=== PATIENT | female | born 1960 | race Two or more races ===

== ENCOUNTER 2016-12-13 18:11 | Emergency (ER) | payer SELFPAY ==
--- NOTE | 2016-12-13 18:40 | EKG REPORT ---
SEVERITY:- BORDERLINE ECG - SINUS RHYTHM PROBABLE LEFT ATRIAL ABNORMALITY : Confirmed by: Ashleigh Mcconnell MD 13-Dec-2016 18:39:57
--- NOTE | 2016-12-13 18:44 | ER Document Report ---
ED Medical Screen (RME) - General Chief Complaint: Chest Pain Stated Complaint: CHEST PAIN, BACK PAIN Time seen by provider: 18:41 Mode of Arrival: Ambulatory Information source: Patient Notes: 56-year-old female presents to ED for chest and back pain with coughs and colds since October. States she has a history of high blood pressure and cholesterol. States she has a history of angina and fluids around her heart 1994. November 21 she saw her primary doctor was put on Keflex and prednisone and was told her she did not get better she was going to need a chest x-ray. I have greeted and performed a rapid initial assessment of this patient. A comprehensive ED assessment and evaluation of the patient, analysis of test results and completion of medical decision making process will be conducted by an additional ED providers. TRAVEL OUTSIDE OF THE [place] IN LAST 30 DAYS: No - Related Data Allergies/Adverse Reactions: acetaminophen [From Fioricet] Allergy (Verified 03/27/16 12:01) butalbital [From Fioricet] Allergy (Verified 03/27/16 12:01) caffeine [From Fioricet] Allergy (Verified 03/27/16 12:01) Past Medical History Renal/ Medical History: Reports: Hx Kidney Stones Psychiatric Medical History: Reports: Hx Depression Past Surgical History: Reports: Hx Breast Surgery - x3, Hx Cardiac Catheterization, Hx Cholecystectomy, Hx Gynecologic Surgery - x3, Hx Kidney ( Renal Surgery) - remove stone
[2016-12-13] MEDS ORDERED: ASPIRIN 81 MG TABLET, CHEWABLE PO ONE (18:45)
[2016-12-13 19:14] LABS: ABSOLUTE EOSINOPHILS # (AUTO) 0.2 10^3/uL (0.0-0.6); ABSOLUTE LYMPHOCYTES (AUTO) 2.6 10^3/uL (0.5-4.7); ABSOLUTE MONOCYTES (AUTO) 0.6 10^3/uL (0.1-1.4); ABSOLUTE NEUT (AUTO) 4.5 10^3/uL (1.7-8.2); BASOPHILS % (AUTO) 0.6 % (0-2); EOSINOPHILS % (AUTO) 2.7 % (0-6); HEMATOCRIT 39.2 % (36.0-47.0); HEMOGLOBIN 12.9 g/dL (12.0-15.5); HGB HCT DIFFERENCE -0.5; LYMPHOCYTES % (AUTO) 32.7 % (13-45); MEAN CORPUSCULAR HEMOGLOBIN 27.9 pg (27.0-33.4); MEAN CORPUSCULAR HGB CONC 32.8 g/dL (32.0-36.0); MEAN CORPUSCULAR VOLUME 85 fl (80-97); MONOCYTES % (AUTO) 7.3 % (3-13); RED BLOOD COUNT 4.61 10^6/uL (3.72-5.28); RED CELL DISTRIBUTION WIDTH 13.9 % (11.5-14.0); SEGMENTED NEUTROPHILS % (AUTO) 56.7 % (42-78)
[2016-12-13 19:26] LABS: ALANINE AMINOTRANSFERASE 41 U/L (9-52); ALBUMIN 4.8 g/dL (3.5-5.0); ALKALINE PHOSPHATASE 72 U/L (38-126); ANION GAP 12 (5-19); ASPARTATE AMINO TRANSFERASE 21 U/L (14-36); BILIRUBIN,TOTAL 0.4 mg/dL (0.2-1.3); BLOOD UREA NITROGEN 25 mg/dL (7-20); CARBON DIOXIDE 29 mmol/L (22-30); CHLORIDE 102 mmol/L (98-107); CREATINE KINASE 46 U/L (30-135); CREATININE RESULT 0.71 mg/dL (0.52-1.25); GLUCOSE 89 mg/dL (75-110); LIPASE 113.6 U/L (23-300); POTASSIUM 4.2 mmol/L (3.6-5.0); SODIUM 143.4 mmol/L (137-145); TOTAL PROTEIN 7.7 g/dL (6.3-8.2)
[2016-12-13 19:38] LABS: CREATINE KINASE MB 0.23 ng/mL (<4.55)
[2016-12-13 19:39] LABS: TROPONIN I < 0.012 ng/mL
[2016-12-13] MEDS ORDERED: CYCLOBENZAPRINE HCL 10 MG TABLET PO ONE (22:41)
--- NOTE | 2016-12-13 22:42 | ER Document Report ---
ED General - General Mode of Arrival: Ambulatory TRAVEL OUTSIDE OF THE [place] IN LAST 30 DAYS: No - HPI Patient complains to provider of: Substernal Chest pain and upper back pain Associated symptoms: Other - see above Exacerbated by: Movement, Deep breathing <LAITH HOLLAND - Last Filed: 12/13/16 23:31> <MARIKABREN BRIEN - Last Filed: 12/14/16 03:26> - General Chief Complaint: Chest Pain Stated Complaint: CHEST PAIN, BACK PAIN Notes: 56 -year-old female with history of angina presents to the ED complaining of substernal chest pain and upper back pain that began earlier today. Patient states that she has been sick since 10/23/2016 with a cough, congestion, and fever. Patient followed up with an urgent care and was prescribed a Z-Riley. On 11/21/2016 patient developed another fever and still had the cough and congestion. Patient was prescribed Keflex and prednisone. Patient states that the prednisone helped with the cough and congestion, but she states that she is currently having chest pain with deep breathing and movement. Patient explains that she was having armpit pain back in October when she was experiencing a cough, congestion, and fever. Patient has a history of hyperlipidemia and hypertension. Patient denies use of estrogen supplements. (LAITH HOLLAND) - Related Data Allergies/Adverse Reactions: acetaminophen [From Fioricet] Allergy (Verified 12/13/16 18:44) butalbital [From Fioricet] Allergy (Verified 12/13/16 18:44) caffeine [From Fioricet] Allergy (Verified 12/13/16 18:44) Past Medical History - General Information source: Patient - Social History Smoking Status: Current Every Day Smoker Chew tobacco use (# tins/day): No Frequency of alcohol use: None Drug Abuse: None Family History: Reviewed & Not Pertinent Patient has suicidal ideation: No Patient has homicidal ideation: No - Past Medical History Cardiac Medical History: Reports: Other - angina Renal/ Medical History: Reports: Hx Kidney Stones Psychiatric Medical History: Reports: Hx Depression Past Surgical History: Reports: Hx Breast Surgery - x3, Hx Cardiac Catheterization, Hx Cholecystectomy, Hx Gynecologic Surgery - x3, Hx Kidney ( Renal Surgery) - remove stone <LAITH HOLLAND - Last Filed: 12/13/16 23:31> Review of Systems - Review of Systems Constitutional: See HPI, Recent illness - cough, congestion, and fever from early october to early november. EENT: No symptoms reported Cardiovascular: See HPI, Chest pain - substernal Respiratory: No symptoms reported Gastrointestinal: No symptoms reported Genitourinary: No symptoms reported Female Genitourinary: No symptoms reported Musculoskeletal: See HPI, Back pain - upper back Skin: No symptoms reported Hematologic/Lymphatic: No symptoms reported Neurological/Psychological: No symptoms reported <LAITH HOLLAND - Last Filed: 12/13/16 23:31> Physical Exam - Vital signs Interpretation: Normal - General General appearance: Alert In distress: None - HEENT Head: Normocephalic, Atraumatic Eyes: Normal Extraocular movements intact: Yes Pupils: PERRL - Respiratory Respiratory status: No respiratory distress Chest status: Tender - see below Breath sounds: Normal Chest palpation: Tender - anterior chest wall tenderness to palpation. No: Normal - Cardiovascular Rhythm: Regular Heart sounds: Normal auscultation - Abdominal Inspection: Normal - Back Back: Normal - Extremities General upper extremity: Normal inspection, Normal ROM General lower extremity: Normal inspection, Normal ROM - Neurological Neuro grossly intact: Yes Cognition: Normal Orientation: AAOx4 Monster Coma Scale Eye Opening: Spontaneous [place] Coma Scale Verbal: Oriented [place] Coma Scale Motor: Obeys Commands Monster Coma Scale Total: 15 Speech: Normal - Psychological Associated symptoms: Normal affect, Normal mood - Skin Skin Temperature: Warm Skin Moisture: Dry Skin Color: Normal <LAITH HOLLAND - Last Filed: 12/13/16 23:31> <BREN HAIRSTON - Last Filed: 12/14/16 03:26> - Vital signs Vitals: Temp Pulse Resp BP Pulse Ox 97.8 F 81 20 134/96 H 96 12/13/16 18:44 12/13/16 18:44 12/13/16 18:44 12/13/16 18:44 12/13/16 18:44 (LAITH HOLLAND) (BREN HAIRSTON) Course - Laboratory Result Diagrams: 12/13/16 18:50 12/13/16 18:50 <LAITH HOLLAND - Last Filed: 12/13/16 23:31> - Laboratory Result Diagrams: 12/13/16 18:50 12/13/16 18:50 <BREN HAIRSTON - Last Filed: 12/14/16 03:26> - Re-evaluation Re-evalutation: 12/14/16 Patient with reproducible chest wall pain. Troponin negative. EKG within normal limits. CTA with no acute findings of pulmonary embolus or infection. Patient has been given a copy of her CT results which show pulmonary nodules. She is to follow-up with her doctor. Understands and agrees with plan. She'll be discharged home with Soma for pain. Return if any worsening or concerning symptoms. Grateful for care. (BREN HAIRSTON) - Vital Signs Vital signs: Temp Pulse Resp BP Pulse Ox 97.5 F 63 16 141/92 H 96 12/14/16 00:43 12/14/16 00:43 12/14/16 00:43 12/14/16 00:43 12/14/16 00:43 (LAITH HOLLAND) (BREN HAIRSTON) - Laboratory Laboratory results interpreted by me: 12/13/16 18:50 BUN 25 H (LAITH HOLLAND) (BREN HAIRSTON) Discharge <LAITH HOLLAND - Last Filed: 12/13/16 23:31> <BREN HAIRSTON - Last Filed: 12/14/16 03:26> - Discharge Clinical Impression: Atypical chest pain, Pulmonary nodule Condition: Stable Disposition: HOME, SELF-CARE Instructions: Chest Pain of Unclear Cause ([facility]) Prescriptions: Carisoprodol [Soma] 350 mg PO DAILYP PRN #14 tablet PRN Reason: Forms: Smoking Cessation Education Referrals: LUPE MICHELLE PA-C [Primary Care Provider] - Follow up as needed Scribe Attestation: 12/14/16 03:26 I personally performed the services described in the documentation, reviewed and edited the documentation which was dictated to the scribe in my presence, and it accurately records my words and actions. (BREN HAIRSTON) Scribe Documentation - Scribe Written by Akiraibe:: Jessica Mello, 12/13/2016 23:51 acting as scribe for :: Marika <LAITH HOLLAND - Last Filed: 12/13/16 23:31>
[2016-12-14 00:45] VITALS: BP 141/92
== END 2016-12-14 00:49 | disposition home or self-care (01) ==
LOC: ER 18:11
DX: O28.8 Other abnormal findings on antenatal screening of mother (principal); R07.9 Chest pain, unspecified; M54.9 Dorsalgia, unspecified; F17.210 Nicotine dependence, cigarettes, uncomplicated
CPT/HCPCS: 36415; 71020; 71275; 80053; 82550; 82553; 83690; 84484; 85025; 93005; 93010; 99285

== ENCOUNTER → 2017-03-15 | Outpatient (CLI) | payer SELFPAY | LOC: OD 14:50 | PROVIDERS: ATTEND Nurse Practitioner Acute Care | DX: S59.902A Unspecified injury of left elbow, initial encounter (principal); X58.XXXA Exposure to other specified factors, initial encounter ==

== ENCOUNTER 2019-02-24 13:13 | Inpatient (IN) | payer SELFPAY ==
--- NOTE | 2019-02-24 14:24 | ER Document Report ---
ED Medical Screen (RME) - General Chief Complaint: Abdominal Cramping Stated Complaint: urinary issue Time Seen by Provider: 02/24/19 14:16 Primary Care Provider: ZAHRA SPENCER NP [Primary Care Provider] - Follow up as needed TRAVEL OUTSIDE OF THE [place] IN LAST 30 DAYS: No - HPI Notes: 02/24/19 14:22 Patient is a 58-year-old female who presents emergency department complaining of lower abdominal pain bilaterally over the past couple days that has increased in intensity and is described as sharp stabbing pains with associated rectal pain prior to having bowel movements. She did have a normal bowel movement today without any hematochezia or melena. Patient was seen at urgent care a couple days ago and had an unremarkable urinalysis, but was subsequently placed on Ba ctrim as precautionary. She has not had any improvement, but noticed worsening symptoms. Denies ROACH, fever, neck pain, URI, CP, SOB, Abd pain, vaginal discharge/odor/bleeding, or rash. I have treated and performed a rapid initial assessment of this patient. A comprehensive ED assessment and evaluation of the patient, analysis of test results and completion of medical decision making process will be conducted by additional ED providers. PHYSICAL EXAMINATION: GENERAL: Well-appearing, well-nourished and in no acute distress. A&Ox4. Answers questions appropriately. LUNGS: Breath sounds clear to auscultation bilaterally and equal. No wheezes rales or rhonchi. HEART: Regular rate and rhythm without murmurs, rubs, gallops. ABDOMEN: Soft, nondistended abdomen. No guarding, no rebound. Normal bowel sounds present. No CVA tenderness bilaterally. + lower abd tenderness (cannot elicit thorough abd exam w/o table, however). Extremities: No cyanosis, clubbing, or edema b/l. NEUROLOGICAL: Normal speech, normal gait. PSYCH: Normal mood, normal affect. - Related Data Allergies/Adverse Reactions: aspirin [From Fiorinal] Allergy (Verified 02/24/19 13:15) butalbital [From Fiorinal] Allergy (Verified 02/24/19 13:15) caffeine [From Fiorinal] Allergy (Verified 02/24/19 13:15) Past Medical History Renal/ Medical History: Reports: Hx Kidney Stones. Denies: Hx Peritoneal Dialysis Psychiatric Medical History: Reports: Hx Depression Past Surgical History: Reports: Hx Breast Surgery - x3, Hx Cardiac Catheterization, Hx Cholecystectomy, Hx Gynecologic Surgery - x3, Hx Kidney (Renal Surgery) - remove stone Physical Exam - Vital signs Vitals: Temp Pulse Resp BP Pulse Ox 97.6 F 87 16 150/88 H 97 02/24/19 13:24 02/24/19 13:24 02/24/19 13:24 02/24/19 13:24 02/24/19 13:24 Course - Vital Signs Vital signs: Temp Pulse Resp BP Pulse Ox 97.6 F 87 16 150/88 H 97 02/24/19 13:24 02/24/19 13:24 02/24/19 13:24 02/24/19 13:24 02/24/19 13:24 Doctor's Discharge - Discharge Referrals: ZAHRA SPENCER NP [Primary Care Provider] - Follow up as needed
[2019-02-24 15:06] LABS: ABSOLUTE EOSINOPHILS # (AUTO) 0.1 10^3/uL (0.0-0.6); ABSOLUTE LYMPHOCYTES (AUTO) 1.8 10^3/uL (0.5-4.7); ABSOLUTE MONOCYTES (AUTO) 0.4 10^3/uL (0.1-1.4); ABSOLUTE NEUT (AUTO) 5.2 10^3/uL (1.7-8.2); BASOPHILS % (AUTO) 0.5 % (0-2); EOSINOPHILS % (AUTO) 0.9 % (0-6); HEMATOCRIT 40.5 % (36.0-47.0); HEMOGLOBIN 13.7 g/dL (12.0-15.5); LYMPHOCYTES % (AUTO) 24.2 % (13-45); MEAN CORPUSCULAR HEMOGLOBIN 27.9 pg (27.0-33.4); MEAN CORPUSCULAR HGB CONC 33.9 g/dL (32.0-36.0); MEAN CORPUSCULAR VOLUME 83 fl (80-97); MONOCYTES % (AUTO) 4.7 % (3-13); PLATELET COUNT 293 10^3/uL (150-450); RED CELL DISTRIBUTION WIDTH 14.4 % (11.5-14.0); SEGMENTED NEUTROPHILS % (AUTO) 69.7 % (42-78); TOTAL CELLS COUNTED % (AUTO) 100 %; WHITE BLOOD COUNT 7.5 10^3/uL (4.0-10.5)
[2019-02-24 15:20] LABS: ALANINE AMINOTRANSFERASE 25 U/L (9-52); ALBUMIN 4.8 g/dL (3.5-5.0); ALKALINE PHOSPHATASE 104 U/L (38-126); ANION GAP 14 (5-19); ASPARTATE AMINO TRANSFERASE 25 U/L (14-36); BILIRUBIN,DIRECT 0.2 mg/dL (0.0-0.4); BILIRUBIN,TOTAL 0.5 mg/dL (0.2-1.3); BLOOD UREA NITROGEN 8 mg/dL (7-20); CALCIUM 10.7 mg/dL (8.4-10.2); CARBON DIOXIDE 26 mmol/L (22-30); CHLORIDE 101 mmol/L (98-107); GLUCOSE 126 mg/dL (75-110); LIPASE 70.6 U/L (23-300); SODIUM 140.9 mmol/L (137-145); TOTAL PROTEIN 8.7 g/dL (6.3-8.2)
[2019-02-24 15:30] LABS: APPEARANCE,URINE CLEAR; BILIRUBIN,URINE NEGATIVE (NEGATIVE); GLUCOSE, URINE NEGATIVE (NEGATIVE); KETONES,URINE NEGATIVE (NEGATIVE); LEUKOCYTE ESTERASE,URINE NEGATIVE (NEGATIVE); NITRITE,URINE POSITIVE (NEGATIVE); PROTEIN,URINE NEGATIVE (NEGATIVE); URINE SPECIFIC GRAVITY 1.003; UROBILINOGEN,URINE NEGATIVE mg/dL (<2.0)
[2019-02-24 15:31] LABS: COLOR,URINE YELLOW
[2019-02-24 17:44] LABS: BACTERIA (WET MOUNT) 4+ BACTERIA SEEN; EPITHELIALS (WET MOUNT) 3+ EPITHELIALS SEEN; RBCS (WET MOUNT) FEW RBCS SEEN; T.VAGINALIS (WET MOUNT) NO TRICHOMONAS SEEN; WBCS (WET MOUNT) 2+ WBCS SEEN; YEAST (WET MOUNT) NO YEAST SEEN
[2019-02-24 19:11] LABS: CHLAM PCR NOT DETECTED (NOT DETECT); GON PCR NOT DETECTED (NOT DETECT)
--- NOTE | 2019-02-24 20:28 | RADIOLOGY REPORT (SQ) ---
EXAM DESCRIPTION: RadLex: CT ABDOMEN PELVIS WITH IV CONTRAST CLINICAL HISTORY: 58 years Female; RLQ and epigastric pain TECHNIQUE: CT of the abdomen and pelvis using intravenous 90 mL Omnipaque [address] scans at this facility use dose modulation, iterative reconstruction, and/or weight based dosing when appropriate to reduce radiation dose to as low as reasonably achievable. COMPARISON: None. FINDINGS: Abdomen: Liver:No focal lesions. No intrahepatic ductal distention. Gallbladder: Surgically absent Pancreas:Within normal limits Spleen:Within normal limits Right kidney:No hydronephrosis. No focal lesion. Left kidney:No hydronephrosis. No focal lesion. Adrenal glands:Within normal limits Vascular structures:Within normal limits Pelvis: Small bowel: Nondistended. Contrast is seen throughout. Appendix:Within normal limits Colon: Diverticulosis, mostly along the sigmoid colon. There is a segment of sigmoid colon approximately 8 cm long with wall thickening and adjacent edema, associated with multiple diverticula. Along the superior margin of the segment there is a small 1.1 cm fluid density with punctate focus of air which could be a small localized perforation. There is no drainable abscess. No free intraperitoneal fluid or air. No pelvic adenopathy. Uterus is unremarkable. No adnexal masses. There are chronic degenerative changes of the lower lumbar spine. L5-S1: Bilateral L5 pars defects with associated grade 2 anterior subluxation. Bilateral foraminal stenosis. No acute bone findings. IMPRESSION: 1. Acute sigmoid diverticulitis. 2. No bowel obstruction or free air. 3. Possible 1.1 cm localized perforation along the superior margin of the inflamed segment of sigmoid colon. No drainable abscess. 4. Previous cholecystectomy.
[2019-02-24] MEDS ORDERED: NORMAL SALINE 1000 ML 1,000 ML IV ONE (20:50)
[2019-02-24] MEDS ORDERED: METRONIDAZOLE 500 MG/NS RTU 500 MG/100 ML RTUPB IV ONE (21:00)
--- NOTE | 2019-02-24 21:09 | ER Document Report ---
Entered by ESPERANZA CAROLINA SCRIBE 02/24/191 Acting as scribe for:JEM HARTMAN DO ED GI/ - General Chief Complaint: Abdominal Cramping Stated Complaint: urinary issue Time Seen by Provider: 02/24/19 14:16 Information source: Patient Notes: 58 year old female that presents to the emergency department today with complaints of abdominal, vaginal, and rectal "pressure". Patient states she had similar symptoms a few days ago and went to an urgent care who put her on antibiotics for a possible urinary tract infection although the patient had no urinary symptoms and had a clean urine specimen. Patient states since then she has developed fevers and the "pressure" has moved upwards. Patient denies dysuria, urinary frequency, or back pain. TRAVEL OUTSIDE OF THE [place] IN LAST 30 DAYS: No - Related Data Allergies/Adverse Reactions: aspirin [From Fiorinal] Allergy (Verified 02/24/19 13:15) butalbital [From Fiorinal] Allergy (Verified 02/24/19 13:15) caffeine [From Fiorinal] Allergy (Verified 02/24/19 13:15) Past Medical History - General Information source: Patient - Social History Smoking Status: Never Smoker Cigarette use (# per day): No Frequency of alcohol use: None Drug Abuse: None Lives with: Family Family History: Reviewed & Not Pertinent Patient has suicidal ideation: No Patient has homicidal ideation: No Renal/ Medical History: Reports: Hx Kidney Stones Psychiatric Medical History: Reports: Hx Depression Past Surgical History: Reports: Hx Breast Surgery - x3, Hx Cardiac Catheterization, Hx Cholecystectomy, Hx Gynecologic Surgery - x3, Hx Kidney (Renal Surgery) - remove stone Review of Systems - Review of Systems Constitutional: See HPI, Fever EENT: No symptoms reported Cardiovascular: No symptoms reported Respiratory: No symptoms reported Gastrointestinal: See HPI, Diarrhea, Nausea, Other - abdominal pressure, rectal pressure. denies: Vomiting Genitourinary: See HPI, Other - vaginal pressure Female Genitourinary: No symptoms reported Musculoskeletal: No symptoms reported Skin: No symptoms reported Hematologic/Lymphatic: No symptoms reported Neurological/Psychological: No symptoms reported -: Yes All other systems reviewed and negative Physical Exam - Vital signs Vitals: Temp Pulse Resp BP Pulse Ox 97.6 F 87 16 150/88 H 97 02/24/19 13:24 02/24/19 13:24 02/24/19 13:24 02/24/19 13:24 02/24/19 13:24 - Notes Notes: PHYSICAL EXAM GENERAL: Alert, interacts well. No acute distress. HEAD: Normocephalic, atraumatic. EYES: Pupils equal, round, and reactive to light. Extraocular movements intact. ENT: Oral mucosa moist, tongue midline. NECK: Full range of motion. Supple. Trachea midline. LUNGS: Clear to auscultation bilaterally, no wheezes, rales, or rhonchi. No respiratory distress. HEART: Regular rate and rhythm. No murmurs, gallops, or rubs. ABDOMEN: Soft, tenderness with palpation in the RLQ, periumbilical area, and epigastric area. Non-distended. Bowel sounds present in all 4 quadrants. No guarding, rigidity, or rebound. EXTREMITIES: Moves all 4 extremities spontaneously. No edema, radial and dorsalis pedis pulses 2/4 bilaterally. No cyanosis. NEUROLOGICAL: Alert and oriented x3. Normal speech. PSYCH: Normal affect, normal mood. SKIN: Warm, dry, normal turgor. No rashes or lesions noted. Course - Re-evaluation Re-evalutation: 02/24/19 21:07 CBC unremarkable, CMP unremarkable, urinalysis shows positive nitrites but no other signs of infection, wet prep shows 4+ bacteria, 3+ epithelials, pelvic examination was not consistent with PID or bacterial vaginosis. Gonorrhea currently are negative. CT scan of the abdomen pelvis shows diverticulitis with a 1.1 cm fluid collection with small air bubble suspicious for microperforation. No drainable abscess is noted. Discussed with surgeon on-call Dr. Lucas who agrees with the need to admit her for IV antibiotics. Would like patient admitted to hospitalist. Discussed patient with Dr. Yu who agrees to admit the patient to his service on the [facility] floor. I am starting Cipro and Flagyl. Patient is n.p.o. - Vital Signs Vital signs: Temp Pulse Resp BP Pulse Ox 97.6 F 87 16 150/88 H 97 02/24/19 13:24 02/24/19 13:24 02/24/19 13:24 02/24/19 13:24 02/24/19 13:24 - Laboratory Result Diagrams: 02/24/19 14:15 02/24/19 14:15 Laboratory results interpreted by me: 02/24/19 02/24/19 02/24/19 14:15 14:15 14:15 RDW 14.4 H Glucose 126 H Calcium 10.7 H Total Protein 8.7 H Urine Nitrite POSITIVE H Discharge - Discharge Clinical Impression: Diverticulitis, Acute diverticulitis w/microperforation Condition: Fair Disposition: ADMITTED INPATIENT Admitting Provider: Aimee (Hospitalist) Unit Admitted: Medical Floor I personally performed the services described in the documentation, reviewed and edited the documentation which was dictated to the scribe in my presence, and it accurately records my words and actions.
--- NOTE | 2019-02-24 21:30 | PDOC CONSULTATION ---
Consultation Consult Date: 02/24/19 Consult reason:: left side abdominal pain History of Present Illness Patient complains of: left side abdominal pain History of Present Illness: SOFYA HARMON is a 58 year old female, healthy, who presents to the ED with a c/o left side abdominal pain. A CT scan A/P has been done and it demonstrated a short segment of sigmoid colon affected by acute diverticulitis with a small contained 1 cm perforation, no free air. Past Medical History Psychiatric Medical History: Reports: Depression Past Surgical History Past Surgical History: Reports: Cardiac Catheterization, Cholecystectomy Social History Smoking Status: Never Smoker Family History Family History: Reviewed & Not Pertinent Parental Family History Reviewed: No Children Family History Reviewed: No Sibling(s) Family History Reviewed.: No Medication/Allergy Home Medications: Alprazolam 0.5 mg PO BID 03/27/16 Ciprofloxacin HCl [Cipro 500 mg Tablet] 500 mg PO BID #10 tablet 03/27/16 Ondansetron [Zofran Odt 4 mg Tablet] 1 - 2 tab PO Q4H PRN #15 tab.rapdis 03/27/16 Sertraline HCl 100 mg PO DAILY 03/27/16 Carisoprodol [Soma] 350 mg PO DAILYP PRN #14 tablet 12/14/16 Allergies/Adverse Reactions: aspirin [From Fiorinal] Allergy (Verified 02/24/19 13:15) butalbital [From Fiorinal] Allergy (Verified 02/24/19 13:15) caffeine [From Fiorinal] Allergy (Verified 02/24/19 13:15) Physical Exam Vital Signs: Temp Pulse Resp BP Pulse Ox 97.6 F 87 16 150/88 H 97 02/24/19 13:24 02/24/19 13:24 02/24/19 13:24 02/24/19 13:24 02/24/19 13:24 Intake & Output 02/23/19 02/24/19 02/25/19 06:59 06:59 06:59 Weight 79.5 kg General appearance: PRESENT: no acute distress Head exam: PRESENT: atraumatic Eye exam: PRESENT: EOMI Mouth exam: PRESENT: moist, neck supple Neck exam: PRESENT: full ROM Respiratory exam: PRESENT: clear to auscultation sheba Cardiovascular exam: PRESENT: RRR GI/Abdominal exam: PRESENT: hypoactive bowel sounds, soft, tenderness - left lower quadrant Rectal exam: PRESENT: deferred Extremities exam: PRESENT: full ROM Musculoskeletal exam: PRESENT: full ROM Neurological exam: PRESENT: alert, awake Skin exam: PRESENT: warm Results Laboratory Results: 02/24/19 14:15 02/24/19 14:15 02/24/19 02/24/19 02/24/19 14:15 14:15 14:15 WBC 7.5 RBC 4.90 Hgb 13.7 Hct 40.5 MCV 83 MCH 27.9 MCHC 33.9 RDW 14.4 H Plt Count 293 Seg Neutrophils % 69.7 Lymphocytes % 24.2 Monocytes % 4.7 Eosinophils % 0.9 Basophils % 0.5 Absolute Neutrophils 5.2 Absolute Lymphocytes 1.8 Absolute Monocytes 0.4 Absolute Eosinophils 0.1 Absolute Basophils 0.0 Sodium 140.9 Potassium 4.0 Chloride 101 Carbon Dioxide 26 Anion Gap 14 BUN 8 Creatinine 0.72 Est GFR ( Amer) > 60 Est GFR (Non-Af Amer) > 60 Glucose 126 H Calcium 10.7 H Total Bilirubin 0.5 AST 25 ALT 25 Alkaline Phosphatase 104 Total Protein 8.7 H Albumin 4.8 Lipase 70.6 Urine Color YELLOW Urine Appearance CLEAR Urine pH 6.0 Ur Specific Innis 1.003 Urine Protein NEGATIVE Urine Glucose (UA) NEGATIVE Urine Ketones NEGATIVE Urine Blood NEGATIVE Urine Nitrite POSITIVE H Ur Leukocyte Esterase NEGATIVE Urine WBC (Auto) 0 Urine RBC (Auto) 0 Impressions: Abdomen/Pelvis CT 02/24/19 00:00 IMPRESSION: 1. Acute sigmoid diverticulitis. 2. No bowel obstruction or free air. 3. Possible 1.1 cm localized perforation along the superior margin of the inflamed segment of sigmoid colon. No drainable abscess. 4. Previous cholecystectomy. Assessment & Plan - Diagnosis (1) acute sigmoid diverticulitis Is this a current diagnosis for this admission?: Yes - Plan Summary Plan Summary: A/ LLQ abdomoinal pain Acute sigmoid diverticulitis (8 cm segment) with localized, contained microperforation (1 CM) on CT scan A/P Normal CBCm CMP, UA Physical Exam shows left sided pain P/ Agree with admission by Hospitalist Service NPO IVF NS 150 ml/hr IV Abx (Cipro 400 mg IV q12 and Flagyl 500 mg IV q8) Morphine of Dilaudid for pain As the patient pain improves, her diet can be advanced. We will remain on consult and follow this patient.
[2019-02-24] MEDS ORDERED: DEXTROSE 50%-WATER 25 GM/50 ML DISP.SYRIN IV PRN ×2 (21:42)
[2019-02-24] MEDS ORDERED: MAG HYDROX/AL HYDROX/SIMETH SUSP 30 ML UDCUP PO PRN (21:42)
[2019-02-24] MEDS ORDERED: NORMAL SALINE 1000 ML 1,000 ML IV PRN (21:42)
[2019-02-24] MEDS ORDERED: OXYCODONE-ACETAMINOPHEN 5-325 MG TABLET PO PRN (21:42)
[2019-02-24] MEDS ORDERED: DEXTROSE 40% GEL 15 GM TUBE PO PRN ×2 (21:42)
[2019-02-24] MEDS ORDERED: GLUCAGON,HUMAN RECOMB 1 MG INJ SUBCUT PRN (21:42)
[2019-02-24] MEDS ORDERED: ACETAMINOPHEN 325 MG TABLET PO PRN (21:42)
[2019-02-24] MEDS ORDERED: ZOLPIDEM TARTRATE 5 MG TABLET PO PRN (21:42)
[2019-02-24] MEDS ORDERED: ONDANSETRON HCL INJ/PF 4 MG/2 ML SDV IV PRN (21:42)
[2019-02-24] MEDS ORDERED: CARISOPRODOL 350 MG TABLET PO PRN (21:50)
[2019-02-24] MEDS ORDERED: MORPHINE SULFATE 10 MG/ML INJ IV PRN (21:55)
[2019-02-24] MEDS ORDERED: CIPROFLOXACIN 400 MG/D5W RTU 400 MG/200 ML RTUPB IV SCH (22:00)
--- NOTE | 2019-02-24 22:49 | PDOC H&P ---
History of Present Illness Admission Date/PCP: 02/24/19 21:23 No primary care physician Patient complains of: Abdominal pain History of Present Illness: SOFYA HAROMN is a 58 year old female with history of depression/anxiety and remote history of Lyme's disease who presented to the emergency room with acute onset of lower abdominal pain which has actually started as pressure about a couple weeks ago with intermittent constipation and diarrhea and get si gnificantly worse over the last week. The patient had a fever of 101 on with chills for which she was seen in urgent care on Monday. She was given p.o. Bactrim DS for concern about a UTI however her urinalysis was negative. Her pain got significantly worse today and therefore she came to the ER. The patient however denies any dysuria, oliguria or hematuria or flank pain. She denies any cough or wheezing or hemoptysis. No chest pain or palpitations. Upon presentation to the emergency room her blood pressure was 150/88 with a pulse of 87 respiratory rate of 16 temperature 97.6 and pulse oximetry of 97% on room air. Labs revealed normal CBC and CMP was remarkable for a calcium of 10.7 and total protein of 8.7. Urinalysis showed negative leukocyte esterase and 0 WBCs trace bacteria and positive nitrite. Abdominal pelvic CT scan revealed acute sigmoid large colitis with no bowel obstruction or free air. It showed possible 1.1 cm localized perforation along the superior margin of the inflamed segment of sigmoid colon with no drainable abscess. It showed her previous cho lecystectomy. The patient was given 1 L bolus of IV normal saline as well as IV Cipro and Flagyl. Dr. Lucas has evaluated the patient with me. He does not believe that it is surgical at this time. Patient will be admitted to a medical bed for further management. Past Medical History Past Medical History: The patient had a previous history of Lyme's disease Psychiatric Medical History: Reports: Depression - With anxiety Past Surgical History Past Surgical History: Reports: Cardiac Catheterization, Cholecystectomy, Tubal Ligation, Other - Bilateral breast reduction and later had breast implants. Social History Lives with: Family Smoking Status: Never Smoker Frequency of Alcohol Use: None Hx Recreational Drug Use: No Family History Family History: CAD - The patient's father from [place] at age of 40, Hyperlipidemia, Hypertension Parental Family History Reviewed: Yes Children Family History Reviewed: Yes Sibling(s) Family History Reviewed.: Yes Medication/Allergy Home Medications: Alprazolam 0.5 mg PO BID 03/27/16 Ciprofloxacin HCl [Cipro 500 mg Tablet] 500 mg PO BID #10 tablet 03/27/16 Ondansetron [Zofran Odt 4 mg Tablet] 1 - 2 tab PO Q4H PRN #15 tab.rapdis 03/27/16 Sertraline HCl 100 mg PO DAILY 03/27/16 Carisoprodol [Soma] 350 mg PO DAILYP PRN #14 tablet 12/14/16 Allergies/Adverse Reactions: aspirin [From Fiorinal] Allergy (Verified 02/24/19 13:15) butalbital [From Fiorinal] Allergy (Verified 02/24/19 13:15) caffeine [From Fiorinal] Allergy (Verified 02/24/19 13:15) Review of Systems Review of Systems: As per history of present illness. All pertinent systems were reviewed above. Constitutional, HEENT, cardiovascular, respiratory, GI, , musculoskeletal, neuro, psychiatric, endocrine, integumentary and hematologic systems were reviewed and are otherwise negative/unremarkable except for positive findings mentioned above in the HPI. Physical Exam Vital Signs: Temp Pulse Resp BP Pulse Ox 97.6 F 87 16 150/88 H 97 02/24/19 13:24 02/24/19 13:24 02/24/19 13:24 02/24/19 13:24 02/24/19 13:24 Intake & Output 02/23/19 02/24/19 02/25/19 06:59 06:59 06:59 Weight 79.5 kg Exam: Generally: Pleasant middle-aged female in no acute distress. Vital signs-as listed Head - atraumatic, normocephalic. Pupils - equal, round and reactive to light and accommodation. Extraocular movements are intact. No scleral icterus. Oropharynx - moist mucous membranes and tongue. No pharyngeal erythema or exudate. Neck - supple. No JVD. Carotid pulses 2+ bilaterally. No carotid bruits. No palpable thyromegaly or lymphadenopathy. Cardiovascular - regular rate and rhythm. Normal S1 and S2. No murmurs, gallops or rubs. Lungs - clear to auscultation bilaterally. Abdomen - soft with mild suprapubic, to more extent left lower quadrant and to less extent right lower quadrant tenderness without rebound tenderness guarding or rigidity. The patient had positive bowel sounds. No palpable organomegaly or masses. Extremities - no pitting edema, clubbing or cyanosis. Neuro - grossly non-focal. Skin - no rashes. Breast, pelvic and rectal - deferred Results Laboratory Results: 02/24/19 14:15 02/24/19 14:15 02/24/19 02/24/19 02/24/19 14:15 14:15 14:15 WBC 7.5 RBC 4.90 Hgb 13.7 Hct 40.5 MCV 83 MCH 27.9 MCHC 33.9 RDW 14.4 H Plt Count 293 Seg Neutrophils % 69.7 Lymphocytes % 24.2 Monocytes % 4.7 Eosinophils % 0.9 Basophils % 0.5 Absolute Neutrophils 5.2 Absolute Lymphocytes 1.8 Absolute Monocytes 0.4 Absolute Eosinophils 0.1 Absolute Basophils 0.0 Sodium 140.9 Potassium 4.0 Chloride 101 Carbon Dioxide 26 Anion Gap 14 BUN 8 Creatinine 0.72 Est GFR ( Amer) > 60 Est GFR (Non-Af Amer) > 60 Glucose 126 H Calcium 10.7 H Total Bilirubin 0.5 AST 25 ALT 25 Alkaline Phosphatase 104 Total Protein 8.7 H Albumin 4.8 Lipase 70.6 Urine Color YELLOW Urine Appearance CLEAR Urine pH 6.0 Ur Specific [place] 1.003 Urine Protein NEGATIVE Urine Glucose (UA) NEGATIVE Urine Ketones NEGATIVE Urine Blood NEGATIVE Urine Nitrite POSITIVE H Ur Leukocyte Esterase NEGATIVE Urine WBC (Auto) 0 Urine RBC (Auto) 0 Impressions: Abdomen/Pelvis CT 02/24/19 00:00 IMPRESSION: 1. Acute sigmoid diverticulitis. 2. No bowel obstruction or free air. 3. Possible 1.1 cm localized perforation along the superior margin of the inflamed segment of sigmoid colon. No drainable abscess. 4. Previous cholecystectomy. Assessment and Plan - Diagnosis (1) acute sigmoid diverticulitis Is this a current diagnosis for this admission?: Yes Plan: The patient will be admitted to a medical bed. She was placed on IV Cipro and Flagyl. Pain management will be provided. A surgery consultation was obtained by Dr. Lucas who will be following with us. We will keep the patient n.p.o. for now. We will check stool studies for diarrhea. (2) Depression with anxiety Is this a current diagnosis for this admission?: Yes Plan: We will continue the patient Zoloft and Xanax. (3) DVT prophylaxis Is this a current diagnosis for this admission?: Yes Plan: Subtest Lovenox. - Time Within: within 72 hours - Inpatient Certification Medical Necessity: Need for Pain Control, Need for IV Antibiotics, Risk of Complication if Not Cared For in Hospital - Plan Summary Plan Summary: The plan of care was discussed in details with the patient. I answered all questions. The patient agreed to proceed with the above-mentioned plan. The patient is presumably full code. This note was created by [employer] software and may contain typo errors that may have not been proofread.
[2019-02-24] MEDS ORDERED: CIPROFLOXACIN 400 MG/D5W RTU 400 MG/200 ML RTUPB IV ONE (23:00)
[2019-02-24] MEDS: ALPRAZOLAM 0.5 MG TABLET PO SCH (23:14)
[2019-02-24] MEDS: FAMOTIDINE 20 MG TABLET PO SCH (23:14)
[2019-02-25 04:33] LABS: ABSOLUTE EOSINOPHILS # (AUTO) 0.3 10^3/uL (0.0-0.6); ABSOLUTE LYMPHOCYTES (AUTO) 2.4 10^3/uL (0.5-4.7); ABSOLUTE MONOCYTES (AUTO) 0.5 10^3/uL (0.1-1.4); ABSOLUTE NEUT (AUTO) 2.3 10^3/uL (1.7-8.2); BASOPHILS % (AUTO) 0.6 % (0-2); EOSINOPHILS % (AUTO) 4.6 % (0-6); HEMATOCRIT 34.7 % (36.0-47.0); HEMOGLOBIN 11.8 g/dL (12.0-15.5); LYMPHOCYTES % (AUTO) 43.7 % (13-45); MEAN CORPUSCULAR HEMOGLOBIN 28.2 pg (27.0-33.4); MEAN CORPUSCULAR HGB CONC 33.9 g/dL (32.0-36.0); MEAN CORPUSCULAR VOLUME 83 fl (80-97); MONOCYTES % (AUTO) 8.5 % (3-13); PLATELET COUNT 219 10^3/uL (150-450); RED BLOOD COUNT 4.17 10^6/uL (3.72-5.28); RED CELL DISTRIBUTION WIDTH 13.8 % (11.5-14.0); SEGMENTED NEUTROPHILS % (AUTO) 42.6 % (42-78); TOTAL CELLS COUNTED % (AUTO) 100 %; WHITE BLOOD COUNT 5.5 10^3/uL (4.0-10.5)
[2019-02-25 04:50] LABS: ANION GAP 10 (5-19); BLOOD UREA NITROGEN 7 mg/dL (7-20); CALCIUM 9.4 mg/dL (8.4-10.2); CARBON DIOXIDE 26 mmol/L (22-30); CHLORIDE 106 mmol/L (98-107); GLUCOSE 87 mg/dL (75-110); POTASSIUM 4.1 mmol/L (3.6-5.0); SODIUM 141.8 mmol/L (137-145)
[2019-02-25] MEDS: METRONIDAZOLE 500 MG/NS RTU 500 MG/100 ML RTUPB IV SCH ×3 (06:25→23:30)
--- NOTE | 2019-02-25 09:37 | PDOC PROGRESS REPORT ---
Subjective Progress Note for:: 02/25/19 Subjective:: patient still c/o LLQ abdominal discomfort, improved since admission, no n/v Reason For Visit: ACUTE DIVERTICULITIS Physical Exam Vital Signs: Temp Pulse Resp BP Pulse Ox 97.5 F 69 18 112/67 94 02/25/19 08:01 02/25/19 08:01 02/25/19 08:01 02/25/19 08:01 02/25/19 08:01 Intake & Output 02/24/19 02/25/19 02/26/19 06:59 06:59 06:59 Intake Total 1300 Balance 1300 Weight 79.9 kg General appearance: PRESENT: no acute distress Respiratory exam: PRESENT: clear to auscultation sheba Cardiovascular exam: PRESENT: RRR GI/Abdominal exam: PRESENT: soft, tenderness - Left lateral and lower quadrant, no peritoneal signs Results Laboratory Results: 02/25/19 04:10 02/25/19 04:10 02/24/19 02/24/19 02/24/19 14:15 14:15 14:15 WBC 7.5 RBC 4.90 Hgb 13.7 Hct 40.5 MCV 83 MCH 27.9 MCHC 33.9 RDW 14.4 H Plt Count 293 Seg Neutrophils % 69.7 Lymphocytes % 24.2 Monocytes % 4.7 Eosinophils % 0.9 Basophils % 0.5 Absolute Neutrophils 5.2 Absolute Lymphocytes 1.8 Absolute Monocytes 0.4 Absolute Eosinophils 0.1 Absolute Basophils 0.0 Sodium 140.9 Potassium 4.0 Chloride 101 Carbon Dioxide 26 Anion Gap 14 BUN 8 Creatinine 0.72 Est GFR ( Amer) > 60 Est GFR (Non-Af Amer) > 60 Glucose 126 H Calcium 10.7 H Total Bilirubin 0.5 AST 25 ALT 25 Alkaline Phosphatase 104 Total Protein 8.7 H Albumin 4.8 Lipase 70.6 Urine Color YELLOW Urine Appearance CLEAR Urine pH 6.0 Ur Specific [place] 1.003 Urine Protein NEGATIVE Urine Glucose (UA) NEGATIVE Urine Ketones NEGATIVE Urine Blood NEGATIVE Urine Nitrite POSITIVE H Ur Leukocyte Esterase NEGATIVE Urine WBC (Auto) 0 Urine RBC (Auto) 0 02/25/19 02/25/19 04:10 04:10 WBC 5.5 RBC 4.17 Hgb 11.8 L Hct 34.7 L MCV 83 MCH 28.2 MCHC 33.9 RDW 13.8 Plt Count 219 Seg Neutrophils % 42.6 Lymphocytes % 43.7 Monocytes % 8.5 Eosinophils % 4.6 Basophils % 0.6 Absolute Neutrophils 2.3 Absolute Lymphocytes 2.4 Absolute Monocytes 0.5 Absolute Eosinophils 0.3 Absolute Basophils 0.0 Sodium 141.8 Potassium 4.1 Chloride 106 Carbon Dioxide 26 Anion Gap 10 BUN 7 Creatinine 0.67 Est GFR ( Amer) > 60 Est GFR (Non-Af Amer) > 60 Glucose 87 Calcium 9.4 Total Bilirubin AST ALT Alkaline Phosphatase Total Protein Albumin Lipase Urine Color Urine Appearance Urine pH Ur Specific [place] Urine Protein Urine Glucose (UA) Urine Ketones Urine Blood Urine Nitrite Ur Leukocyte Esterase Urine WBC (Auto) Urine RBC (Auto) Impressions: Abdomen/Pelvis CT 02/24/19 00:00 IMPRESSION: 1. Acute sigmoid diverticulitis. 2. No bowel obstruction or free air. 3. Possible 1.1 cm localized perforation along the superior margin of the inflamed segment of sigmoid colon. No drainable abscess. 4. Previous cholecystectomy. Assessment & Plan - Diagnosis (1) acute sigmoid diverticulitis Is this a current diagnosis for this admission?: Yes - Plan Summary Plan Summary: A/ Acute sigmoid diverticulitis with microperforation; still LLQ abdominal pain, i mproved Danielle WBC no fever or tachycardia P/ Keep NPO except for ice chips NS 1 L bilus NS 150 mL/hr SCD Lovenox s.c.
[2019-02-25] MEDS ORDERED: NORMAL SALINE 1000 ML 1,000 ML IV PRN (09:38)
[2019-02-25] MEDS ORDERED: NORMAL SALINE 1000 ML 1,000 ML IV ONE (10:30)
[2019-02-25] MEDS: CIPROFLOXACIN 400 MG/D5W RTU 400 MG/200 ML RTUPB IV SCH ×2 (12:50→23:28)
[2019-02-25] MEDS: SERTRALINE HCL 50 MG TABLET PO SCH (12:51)
[2019-02-25] MEDS: ENOXAPARIN SODIUM INJ 40 MG/0.4 ML DISP.SYRIN SUBCUT SCH (12:51)
[2019-02-25] MEDS: FAMOTIDINE 20 MG TABLET PO SCH ×2 (12:51→23:28)
[2019-02-25] MEDS: ALPRAZOLAM 0.5 MG TABLET PO SCH ×2 (12:51→23:29)
--- NOTE | 2019-02-25 20:36 | PDOC PROGRESS REPORT ---
Subjective Progress Note for:: 02/25/19 Subjective:: SOFYA HARMON is a 58 year old female with history of depression/anxiety and remote history of Lyme's disease who presented to the emergency room with acute onset of lower abdominal pain. CT scan revealed acute sigmoid large colitis with no bowel obstruction or free air. It showed possible 1.1 cm localized perforation along the superior margin of the inflamed segment of sigmoid colon with no drainable abscess. The nursing staff reported that the patient attempted to eat ice chips (was previously NPO) but she experienced post-prandial abdominal pain. Will revert back to NPO for now. The patient was seen on rounds. She is resting comfortably in bed on room air. She is A&Ox3. Able to answer all questions appropriately. The patient stated that her abdominal pain was significantly better after receiving IV morphine. She also reports that her abdominal distention has improved over the last 24hrs. On exam, she has tenderness to both lower abdominal quadrants, as well as periumbilical tenderness. Bowel sounds are present. Lengthy discussion with patient about her employment/insurance status. She states she recently moved to [place] from [place] and lost her insurance with the move. She was working time study observer as a daycare aid, but states she can no longer tolerate the demands of the job due to her chronic lower back pain. Will refer patient to case management to assess for needs. Reason For Visit: ACUTE DIVERTICULITIS Physical Exam Vital Signs: Temp Pulse Resp BP Pulse Ox 97.9 F 70 20 124/69 94 02/25/19 16:11 02/25/19 16:11 02/25/19 16:11 02/25/19 16:11 02/25/19 16:11 Intake & Output 02/24/19 02/25/19 02/26/19 06:59 06:59 06:59 Intake Total 1300 100 Balance 1300 100 Weight 79.9 kg General appearance: PRESENT: no acute distress, well-developed, well-nourished Head exam: PRESENT: atraumatic, normocephalic Eye exam: PRESENT: conjunctiva pink, EOMI, PERRLA. ABSENT: scleral icterus Ear exam: PRESENT: normal external ear exam Mouth exam: PRESENT: moist, tongue midline Neck exam: ABSENT: carotid bruit, JVD, lymphadenopathy, thyromegaly Respiratory exam: PRESENT: clear to auscultation sheba. ABSENT: rales, rhonchi, wheezes Cardiovascular exam: PRESENT: RRR. ABSENT: diastolic murmur, rubs, systolic m urmur Pulses: PRESENT: normal dorsalis pedis pul Vascular exam: PRESENT: normal capillary refill GI/Abdominal exam: PRESENT: normal bowel sounds, soft, tenderness - RLQ, LLQ PERIUMBILICAL. ABSENT: distended, guarding, mass, organolmegaly, rebound Rectal exam: PRESENT: deferred Extremities exam: PRESENT: full ROM. ABSENT: calf tenderness, clubbing, pedal edema Neurological exam: PRESENT: alert, awake, oriented to person, oriented to place, oriented to time, oriented to situation. ABSENT: motor sensory deficit Psychiatric exam: PRESENT: appropriate affect, normal mood. ABSENT: homicidal ideation, suicidal ideation Skin exam: PRESENT: dry, intact, warm. ABSENT: cyanosis, rash Results Laboratory Results: 02/25/19 04:10 02/25/19 04:10 02/25/19 02/25/19 04:10 04:10 WBC 5.5 RBC 4.17 Hgb 11.8 L Hct 34.7 L MCV 83 MCH 28.2 MCHC 33.9 RDW 13.8 Plt Count 219 Seg Neutrophils % 42.6 Lymphocytes % 43.7 Monocytes % 8.5 Eosinophils % 4.6 Basophils % 0.6 Absolute Neutrophils 2.3 Absolute Lymphocytes 2.4 Absolute Monocytes 0.5 Absolute Eosinophils 0.3 Absolute Basophils 0.0 Sodium 141.8 Potassium 4.1 Chloride 106 Carbon Dioxide 26 Anion Gap 10 BUN 7 Creatinine 0.67 Est GFR ( Amer) > 60 Est GFR (Non-Af Amer) > 60 Glucose 87 Calcium 9.4 Impressions: Abdomen/Pelvis CT 02/24/19 00:00 IMPRESSION: 1. Acute sigmoid diverticulitis. 2. No bowel obstruction or free air. 3. Possible 1.1 cm localized perforation along the superior margin of the inflamed segment of sigmoid colon. No drainable abscess. 4. Previous cholecystectomy. Status: Imported from PACS Assessment and Plan - Diagnosis (1) acute sigmoid diverticulitis Is this a current diagnosis for this admission?: Yes Plan: Acute sigmoid diverticulitis with micro-perforation No leukocytosis Afebrile Surgery c/s, no plans to operate Continue Cipro & Flagyl (2) Depression with anxiety Is this a current diagnosis for this admission?: Yes Plan: We will continue on home dose Zoloft and Xanax. - Time Time Spent with patient: 15-24 minutes Medications reviewed and adjusted accordingly: Yes Anticipated discharge: Home - Inpatient Certification Based on my medical assessment, after consideration of the patient's comorbidities, presenting symptoms, or acuity I expect that the services needed warrant INPATIENT care.: Yes I certify that my determination is in accordance with my understanding of Medicare's requirements for reasonable and necessary INPATIENT services [42 CFR 412.3e].: Yes Medical Necessity: Need for IV Antibiotics, Risk of Complication if Not Cared For in Hospital - Plan Summary Plan Summary: REMAIN NPO. CONTINUE ANTIBIOTICS. REFER TO CASE MANAGEMENT REGARDING INSURANCE NEEDS.
[2019-02-26 05:19] LABS: ABSOLUTE EOSINOPHILS # (AUTO) 0.3 10^3/uL (0.0-0.6); ABSOLUTE LYMPHOCYTES (AUTO) 1.7 10^3/uL (0.5-4.7); ABSOLUTE MONOCYTES (AUTO) 0.5 10^3/uL (0.1-1.4); ABSOLUTE NEUT (AUTO) 3.7 10^3/uL (1.7-8.2); BASOPHILS % (AUTO) 0.4 % (0-2); EOSINOPHILS % (AUTO) 4.1 % (0-6); HEMATOCRIT 36.8 % (36.0-47.0); HEMOGLOBIN 12.5 g/dL (12.0-15.5); LYMPHOCYTES % (AUTO) 28.2 % (13-45); MEAN CORPUSCULAR HEMOGLOBIN 27.8 pg (27.0-33.4); MEAN CORPUSCULAR HGB CONC 33.9 g/dL (32.0-36.0); MEAN CORPUSCULAR VOLUME 82 fl (80-97); PLATELET COUNT 253 10^3/uL (150-450); RED BLOOD COUNT 4.47 10^6/uL (3.72-5.28); RED CELL DISTRIBUTION WIDTH 13.9 % (11.5-14.0); SEGMENTED NEUTROPHILS % (AUTO) 59.3 % (42-78); TOTAL CELLS COUNTED % (AUTO) 100 %; WHITE BLOOD COUNT 6.2 10^3/uL (4.0-10.5)
[2019-02-26 05:45] LABS: BLOOD UREA NITROGEN 12 mg/dL (7-20); CALCIUM 9.8 mg/dL (8.4-10.2); GLUCOSE 84 mg/dL (75-110)
[2019-02-26 05:46] LABS: ANION GAP 12 (5-19); CARBON DIOXIDE 21 mmol/L (22-30); CHLORIDE 106 mmol/L (98-107); POTASSIUM 4.2 mmol/L (3.6-5.0); SODIUM 139.2 mmol/L (137-145)
[2019-02-26] MEDS: METRONIDAZOLE 500 MG/NS RTU 500 MG/100 ML RTUPB IV SCH ×3 (06:56→23:54)
--- NOTE | 2019-02-26 17:28 | PDOC PROGRESS REPORT ---
Subjective Progress Note for:: 02/26/19 Subjective:: This is a 58 years old female patient with past medical history of anxiety depression and remote history of Lyme disease presented with chief complaint of abdominal pain. CT scan of the abdomen revealed acute sigmoid diverticulitis with possible 1.1 cm localized perforation. Patient has been on IV Flagyl and Cipro. The surgical team has been following the patient and they recommended conservative management. This morning I seen patient resting in bed and she reports this her abdominal pain mildly improved. Reason For Visit: ACUTE DIVERTICULITIS Physical Exam Vital Signs: Temp Pulse Resp BP Pulse Ox 98.5 F 84 18 127/72 H 92 02/26/19 16:05 02/26/19 16:05 02/26/19 16:05 02/26/19 16:05 02/26/19 16:05 Intake & Output 02/25/19 02/26/19 02/27/19 06:59 06:59 06:59 Intake Total 1300 700 Balance 1300 700 Weight 79.9 kg 79.9 kg General appearance: PRESENT: no acute distress Head exam: PRESENT: atraumatic Eye exam: PRESENT: conjunctiva pink Mouth exam: PRESENT: moist Neck exam: ABSENT: carotid bruit, JVD, lymphadenopathy, thyromegaly Respiratory exam: PRESENT: clear to auscultation sheba. ABSENT: rales, rhonchi, wheezes Pulses: PRESENT: normal dorsalis pedis pul GI/Abdominal exam: PRESENT: hypoactive bowel sounds, tenderness Neurological exam: PRESENT: alert, awake, oriented to time, oriented to situation Results Laboratory Results: 02/26/19 04:37 02/26/19 04:37 02/26/19 02/26/19 04:37 04:37 WBC 6.2 RBC 4.47 Hgb 12.5 Hct 36.8 MCV 82 MCH 27.8 MCHC 33.9 RDW 13.9 Plt Count 253 Seg Neutrophils % 59.3 Lymphocytes % 28.2 Monocytes % 8.0 Eosinophils % 4.1 Basophils % 0.4 Absolute Neutrophils 3.7 Absolute Lymphocytes 1.7 Absolute Monocytes 0.5 Absolute Eosinophils 0.3 Absolute Basophils 0.0 Sodium 139.2 Potassium 4.2 Chloride 106 Carbon Dioxide 21 L Anion Gap 12 BUN 12 Creatinine 0.63 Est GFR ( Amer) > 60 Est GFR (Non-Af Amer) > 60 Glucose 84 Calcium 9.8 02/24/19 14:15 Clean Catch Midstream Urine Culture - Final NO GROWTH 2 DAYS Impressions: Abdomen/Pelvis CT 02/24/19 00:00 IMPRESSION: 1. Acute sigmoid diverticulitis. 2. No bowel obstruction or free air. 3. Possible 1.1 cm localized perforation along the superior margin of the inflamed segment of sigmoid colon. No drainable abscess. 4. Previous cholecystectomy. Assessment and Plan - Diagnosis (1) Sigmoid diverticulitis/microperforation Is this a current diagnosis for this admission?: Yes Plan: I will continue conservative management which includes; bowel rest, pain control and IV antibiotics. (2) Anxiety with depression Is this a current diagnosis for this admission?: Yes Plan: Continue her home medication.
[2019-02-26] MEDS: FAMOTIDINE 20 MG TABLET PO SCH ×2 (17:34→23:54)
[2019-02-26] MEDS: ALPRAZOLAM 0.5 MG TABLET PO SCH ×2 (17:34→23:55)
[2019-02-26] MEDS: ENOXAPARIN SODIUM INJ 40 MG/0.4 ML DISP.SYRIN SUBCUT SCH (17:34)
[2019-02-26] MEDS: SERTRALINE HCL 50 MG TABLET PO SCH (17:36)
[2019-02-26] MEDS: CIPROFLOXACIN 400 MG/D5W RTU 400 MG/200 ML RTUPB IV SCH ×2 (17:39→23:53)
--- NOTE | 2019-02-26 20:19 | PDOC PROGRESS REPORT ---
Subjective Progress Note for:: 02/26/19 Subjective:: Is a 58-year-old female with sigmoid diverticulitis. The patient's pain is slowly resolving. She is passing flatus. She is hungry today. She denies chest pain, shortness of breath, fevers, chills, malaise, fatigue, dizziness. She does report abdominal pain, however it is improved them yesterday. Reason For Visit: ACUTE DIVERTICULITIS Physical Exam Vital Signs: Temp Pulse Resp BP Pulse Ox 98.5 F 84 18 127/72 H 92 02/26/19 16:05 02/26/19 16:05 02/26/19 16:05 02/26/19 16:05 02/26/19 16:05 Intake & Output 02/25/19 02/26/19 02/27/19 06:59 06:59 06:59 Intake Total 1300 700 370 Balance 1300 700 370 Weight 79.9 kg 79.9 kg General appearance: PRESENT: no acute distress, cooperative Head exam: PRESENT: atraumatic, normocephalic Eye exam: PRESENT: EOMI, PERRLA. ABSENT: scleral icterus Mouth exam: PRESENT: moist, neck supple Neck exam: ABSENT: meningismus, tenderness, thyromegaly, tracheal deviation Respiratory exam: PRESENT: clear to auscultation sheba, unlabored. ABSENT: chest wall tenderness, tachypnea, wheezes Cardiovascular exam: PRESENT: RRR Pulses: PRESENT: normal radial pulses GI/Abdominal exam: PRESENT: soft, tenderness - Minimal left lower quadrant tenderness. ABSENT: distended, rigid Rectal exam: PRESENT: deferred Extremities exam: ABSENT: clubbing Musculoskeletal exam: ABSENT: deformity Neurological exam: PRESENT: alert, awake, oriented to person, oriented to place, oriented to time, oriented to situation, CN II-XII grossly intact Psychiatric exam: ABSENT: agitated, anxious, depressed Focused psych exam: ABSENT: delusional Skin exam: ABSENT: cyanosis, erythema, jaundice Results Laboratory Results: 02/26/19 04:37 02/26/19 04:37 02/26/19 02/26/19 04:37 04:37 WBC 6.2 RBC 4.47 Hgb 12.5 Hct 36.8 MCV 82 MCH 27.8 MCHC 33.9 RDW 13.9 Plt Count 253 Seg Neutrophils % 59.3 Lymphocytes % 28.2 Monocytes % 8.0 Eosinophils % 4.1 Basophils % 0.4 Absolute Neutrophils 3.7 Absolute Lymphocytes 1.7 Absolute Monocytes 0.5 Absolute Eosinophils 0.3 Absolute Basophils 0.0 Sodium 139.2 Potassium 4.2 Chloride 106 Carbon Dioxide 21 L Anion Gap 12 BUN 12 Creatinine 0.63 Est GFR ( Amer) > 60 Est GFR (Non-Af Amer) > 60 Glucose 84 Calcium 9.8 02/24/19 14:15 Clean Catch Midstream Urine Culture - Final NO GROWTH 2 DAYS Impressions: Abdomen/Pelvis CT 02/24/19 00:00 IMPRESSION: 1. Acute sigmoid diverticulitis. 2. No bowel obstruction or free air. 3. Possible 1.1 cm localized perforation along the superior margin of the inflamed segment of sigmoid colon. No drainable abscess. 4. Previous cholecystectomy. Assessment & Plan - Diagnosis (1) Sigmoid diverticulitis/microperforation Is this a current diagnosis for this admission?: Yes - Plan Summary Plan Summary: This is a 58-year-old female with diverticulitis. Her pain has improved significantly. She is hungry. I will begin her on liquids today. I have discussed the need for colonoscopy in 6 weeks. The patient has voiced understanding of this. If the patient tolerates full liquids today, anticipate advancement of her diet tomorrow. Continue antibiotics. Will follow.
[2019-02-27 05:09] LABS: ABSOLUTE EOSINOPHILS # (AUTO) 0.2 10^3/uL (0.0-0.6); ABSOLUTE LYMPHOCYTES (AUTO) 1.7 10^3/uL (0.5-4.7); ABSOLUTE MONOCYTES (AUTO) 0.6 10^3/uL (0.1-1.4); ABSOLUTE NEUT (AUTO) 4.1 10^3/uL (1.7-8.2); BASOPHILS % (AUTO) 0.5 % (0-2); EOSINOPHILS % (AUTO) 2.8 % (0-6); HEMATOCRIT 35.4 % (36.0-47.0); HEMOGLOBIN 12.1 g/dL (12.0-15.5); LYMPHOCYTES % (AUTO) 25.3 % (13-45); MEAN CORPUSCULAR HEMOGLOBIN 27.7 pg (27.0-33.4); MEAN CORPUSCULAR HGB CONC 34.3 g/dL (32.0-36.0); MEAN CORPUSCULAR VOLUME 81 fl (80-97); MONOCYTES % (AUTO) 9.5 % (3-13); PLATELET COUNT 254 10^3/uL (150-450); RED BLOOD COUNT 4.38 10^6/uL (3.72-5.28); RED CELL DISTRIBUTION WIDTH 13.8 % (11.5-14.0); SEGMENTED NEUTROPHILS % (AUTO) 61.9 % (42-78); TOTAL CELLS COUNTED % (AUTO) 100 %; WHITE BLOOD COUNT 6.7 10^3/uL (4.0-10.5)
[2019-02-27 05:35] LABS: ANION GAP 11 (5-19); BLOOD UREA NITROGEN 11 mg/dL (7-20); CALCIUM 9.6 mg/dL (8.4-10.2); CARBON DIOXIDE 23 mmol/L (22-30); CHLORIDE 104 mmol/L (98-107); GLUCOSE 84 mg/dL (75-110); SODIUM 137.9 mmol/L (137-145)
[2019-02-27] MEDS: METRONIDAZOLE 500 MG/NS RTU 500 MG/100 ML RTUPB IV SCH (06:27)
--- NOTE | 2019-02-27 07:44 | PDOC PROGRESS REPORT ---
Subjective Progress Note for:: 02/27/19 Subjective:: feels better today janet full liquids no pain passing flatus Reason For Visit: ACUTE DIVERTICULITIS Physical Exam Vital Signs: Temp Pulse Resp BP Pulse Ox 98.1 F 77 17 125/67 93 02/27/19 00:04 02/27/19 00:04 02/27/19 00:04 02/27/19 00:04 02/27/19 00:04 Intake & Output 02/26/19 02/27/19 02/28/19 06:59 06:59 06:59 Intake Total 700 970 Balance 700 970 Weight 79.9 kg 77.8 kg General appearance: PRESENT: no acute distress Eye exam: PRESENT: EOMI Mouth exam: PRESENT: moist Neck exam: PRESENT: full ROM Respiratory exam: PRESENT: clear to auscultation sheba Cardiovascular exam: PRESENT: RRR GI/Abdominal exam: PRESENT: soft Rectal exam: PRESENT: deferred Extremities exam: PRESENT: full ROM Musculoskeletal exam: PRESENT: full ROM Neurological exam: PRESENT: alert, awake, oriented to person, oriented to place, oriented to time, oriented to situation Skin exam: PRESENT: dry Results Laboratory Results: 02/27/19 04:19 02/27/19 04:19 02/27/19 02/27/19 04:19 04:19 WBC 6.7 RBC 4.38 Hgb 12.1 Hct 35.4 L MCV 81 MCH 27.7 MCHC 34.3 RDW 13.8 Plt Count 254 Seg Neutrophils % 61.9 Lymphocytes % 25.3 Monocytes % 9.5 Eosinophils % 2.8 Basophils % 0.5 Absolute Neutrophils 4.1 Absolute Lymphocytes 1.7 Absolute Monocytes 0.6 Absolute Eosinophils 0.2 Absolute Basophils 0.0 Sodium 137.9 Potassium 4.0 Chloride 104 Carbon Dioxide 23 Anion Gap 11 BUN 11 Creatinine 0.52 Est GFR ( Amer) > 60 Est GFR (Non-Af Amer) > 60 Glucose 84 Calcium 9.6 02/24/19 14:15 Clean Catch Midstream Urine Culture - Final NO GROWTH 2 DAYS Impressions: Abdomen/Pelvis CT 02/24/19 00:00 IMPRESSION: 1. Acute sigmoid diverticulitis. 2. No bowel obstruction or free air. 3. Possible 1.1 cm localized perforation along the superior margin of the inflamed segment of sigmoid colon. No drainable abscess. 4. Previous cholecystectomy. Assessment & Plan - Plan Summary Plan Summary: resolving diverticulitis 1st episode janet full lqiuids no pain and resumption of bowel function ]wbc wnl recommend pt could be discharged home on po abx for 7-10 days needs f/u for elective colo and barium enema in 3-4 wks with surgery clinic please reconsult surgery if necessary.
[2019-02-27] MEDS: FAMOTIDINE 20 MG TABLET PO SCH (09:38)
[2019-02-27] MEDS: CIPROFLOXACIN 400 MG/D5W RTU 400 MG/200 ML RTUPB IV SCH (09:40)
[2019-02-27] MEDS: ENOXAPARIN SODIUM INJ 40 MG/0.4 ML DISP.SYRIN SUBCUT SCH (09:40)
[2019-02-27] MEDS: ALPRAZOLAM 0.5 MG TABLET PO SCH (09:41)
[2019-02-27] MEDS: SERTRALINE HCL 50 MG TABLET PO SCH (09:41)
[2019-02-27 12:26] VITALS: BP 130/83
--- NOTE | 2019-02-27 12:51 | PDOC DISCHARGE SUMMARY ---
General - Admit/Disc Date/PCP Admission Date/Primary Care Provider: 02/24/19 21:23 Discharge Date: 02/27/19 - Discharge Diagnosis (1) Sigmoid diverticulitis/microperforation Is this a current diagnosis for this admission?: Yes (2) Anxiety with depression Is this a current diagnosis for this admission?: Yes - Additional Information Home Medications: No Home Medications 02/25/19 History of Present Illness History of Present Illness: SOFYA HARMON is a 58 year old female with history of depression/anxiety and remote history of Lyme's disease who presented to the emergency room with acute onset of lower abdominal pain which has actually started as pressure about a couple weeks ago with intermittent constipation and diarrhea and get significantly worse over the last week. The patient had a fever of 101 on with chills for which she was seen in urgent care on Monday. She was given p.o. Bactrim DS for concern about a UTI however her urinalysis was negative. Her pain got significantly worse today and therefore she came to the ER. The patient however denies any dysuria, oliguria or hematuria or flank pain. She denies any cough or wheezing or hemoptysis. No chest pain or palpitations. Upon presentation to the emergency room her blood pressure was 150/88 with a pulse of 87 respiratory rate of 16 temperature 97.6 and pulse oximetry of 97% on room air. Labs revealed normal CBC and CMP was remarkable for a calcium of 10.7 and total protein of 8.7. Urinalysis showed negative leukocyte esterase and 0 WBCs trace bacteria and positive nitrite. Abdominal pelvic CT scan revealed acute sigmoid large colitis with no bowel obstruction or free air. It showed possible 1.1 cm localized perforation along the superior margin of the inflamed segment of sigmoid colon with no drainable abscess. It showed her previous cholecystectomy. The patient was given 1 L bolus of IV normal saline as well as IV Cipro and Flagyl. Dr. Lucas has evaluated the patient with me. He does not believe that it is surgical at this time. Patient will be admitted to a medical bed for further management. Hospital Course Hospital Course: This is a 58 years old female patient with past medical history of anxiety depression and remote history of Lyme disease presented with chief complaint of abdominal pain. CT scan of the abdomen revealed acute sigmoid diverticulitis with possible 1.1 cm localized perforation. Patient has been on IV Flagyl and Cipro. The surgical team has been following the patient and they recommended conservative management. This morning patient reevaluated by Dr. Mistry who transitioned her diet to full liquid and cleared her for discharge and follow-up appointment with him in 3-4 weeks. I myself also evaluated this patient this morning and she is awake alert oriented she is not in pain or any form of distress and she is very eager to go home. Her vital signs blood works are within normal limits. I will send her home with Flagyl and Cipro for 7 days. Physical Exam Vital Signs: Temp Pulse Resp BP Pulse Ox 98.0 F 72 16 130/83 H 95 02/27/19 11:00 02/27/19 11:00 02/27/19 11:00 02/27/19 11:00 02/27/19 11:00 Intake & Output 02/26/19 02/27/19 02/28/19 06:59 06:59 06:59 Intake Total 700 970 100 Balance 700 970 100 Weight 79.9 kg 77.8 kg General appearance: PRESENT: no acute distress, well-developed, well-nourished Head exam: PRESENT: atraumatic, normocephalic Eye exam: PRESENT: conjunctiva pink, EOMI, PERRLA. ABSENT: scleral icterus Ear exam: PRESENT: normal external ear exam Mouth exam: PRESENT: moist, tongue midline Neck exam: ABSENT: carotid bruit, JVD, lymphadenopathy, thyromegaly Respiratory exam: PRESENT: clear to auscultation sheba. ABSENT: rales, rhonchi, wheezes Cardiovascular exam: PRESENT: RRR. ABSENT: diastolic murmur, rubs, systolic murmur Pulses: PRESENT: normal dorsalis pedis pul Vascular exam: PRESENT: normal capillary refill GI/Abdominal exam: PRESENT: normal bowel sounds, soft. ABSENT: distended, guarding, mass, organolmegaly, rebound, tenderness Rectal exam: PRESENT: deferred Extremities exam: PRESENT: full ROM. ABSENT: calf tenderness, clubbing, pedal edema Neurological exam: PRESENT: alert, awake, oriented to person, oriented to place, oriented to time, oriented to situation, CN II-XII grossly intact. ABSENT: motor sensory deficit Psychiatric exam: PRESENT: appropriate affect, normal mood. ABSENT: homicidal ideation, suicidal ideation Skin exam: PRESENT: dry, intact, warm. ABSENT: cyanosis, rash Results Laboratory Results: 02/27/19 04:19 02/27/19 04:19 02/27/19 02/27/19 04:19 04:19 WBC 6.7 RBC 4.38 Hgb 12.1 Hct 35.4 L MCV 81 MCH 27.7 MCHC 34.3 RDW 13.8 Plt Count 254 Seg Neutrophils % 61.9 Lymphocytes % 25.3 Monocytes % 9.5 Eosinophils % 2.8 Basophils % 0.5 Absolute Neutrophils 4.1 Absolute Lymphocytes 1.7 Absolute Monocytes 0.6 Absolute Eosinophils 0.2 Absolute Basophils 0.0 Sodium 137.9 Potassium 4.0 Chloride 104 Carbon Dioxide 23 Anion Gap 11 BUN 11 Creatinine 0.52 Est GFR ( Amer) > 60 Est GFR (Non-Af Amer) > 60 Glucose 84 Calcium 9.6 Impressions: Abdomen/Pelvis CT 02/24/19 00:00 IMPRESSION: 1. Acute sigmoid diverticulitis. 2. No bowel obstruction or free air. 3. Possible 1.1 cm localized perforation along the superior margin of the inflamed segment of sigmoid colon. No drainable abscess. 4. Previous cholecystectomy. Qualifiers - * PATIENT BEING DISCHARGED WITH ANY OF THE FOLLOWING DIAGNOSIS: No
== END 2019-02-27 13:53 | disposition home or self-care (01) | DRG 392 ==
LOC: ER 13:13 → EH 21:23 → 5 22:55
PROVIDERS: ADMIT Family Medicine; ATTEND Family Medicine
DX: K57.20 Diverticulitis of large intestine with perforation and abscess without bleeding (principal); F41.8 Other specified anxiety disorders
CPT/HCPCS: 36415; 74177; 80048; 80053; 81001; 83690; 85025; 87040; 87086; 87210; 87491; 87591; 96365; 99285; J0744; J1650; J7030

== ENCOUNTER → 2019-12-21 | Outpatient (CLI) | payer SELFPAY ==
[2019-12-21 10:11] LABS: ABSOLUTE BASOPHILS # (AUTO) 0.1 10^3/uL (0.0-0.2); ABSOLUTE EOSINOPHILS # (AUTO) 0.3 10^3/uL (0.0-0.6); ABSOLUTE LYMPHOCYTES (AUTO) 2.1 10^3/uL (0.5-4.7); ABSOLUTE MONOCYTES (AUTO) 0.4 10^3/uL (0.1-1.4); ABSOLUTE NEUT (AUTO) 3.3 10^3/uL (1.7-8.2); BASOPHILS % (AUTO) 0.8 % (0-2); EOSINOPHILS % (AUTO) 4.4 % (0-6); HEMATOCRIT 40.7 % (36.0-47.0); HEMOGLOBIN 13.8 g/dL (12.0-15.5); MEAN CORPUSCULAR HEMOGLOBIN 28.2 pg (27.0-33.4); MEAN CORPUSCULAR VOLUME 83 fl (80-97); MONOCYTES % (AUTO) 6.4 % (3-13); PLATELET COUNT 235 10^3/uL (150-450); SEGMENTED NEUTROPHILS % (AUTO) 54.4 % (42-78); TOTAL CELLS COUNTED % (AUTO) 100 %; WHITE BLOOD COUNT 6.1 10^3/uL (4.0-10.5)
[2019-12-21 10:32] LABS: ALBUMIN 4.4 g/dL (3.5-5.0); ALKALINE PHOSPHATASE 62 U/L (38-126); ANION GAP 9 (5-19); ASPARTATE AMINO TRANSFERASE 37 U/L (14-36); BILIRUBIN,TOTAL 0.5 mg/dL (0.2-1.3); BLOOD UREA NITROGEN 11 mg/dL (7-20); CALCIUM 9.6 mg/dL (8.4-10.2); CARBON DIOXIDE 26 mmol/L (22-30); CHLORIDE 105 mmol/L (98-107); CHOLESTEROL 190.93 mg/dL (0-200); GLUCOSE 81 mg/dL (75-110); POTASSIUM 4.4 mmol/L (3.6-5.0); TOTAL PROTEIN 7.4 g/dL (6.3-8.2); TRIGLYCERIDES 163 mg/dL (<150)
[2019-12-21 10:42] LABS: DIRECT LDL 108 mg/dL (<100)
[2019-12-21 10:45] LABS: VLDL CHOLESTEROL 32.6 mg/dL (10-31)
== END ==
LOC: CCC 08:24
DX: K57.92 Diverticulitis of intestine, part unspecified, without perforation or abscess without bleeding (principal)
CPT/HCPCS: 36415; 80053; 80061; 83036; 84443; 85025